=== PATIENT | female | born 1965 | race Caucasian/White ===

== ENCOUNTER 2025-03-19 11:49 | Outpatient (REF) | payer OTHER, SELFPAY ==
--- OUTSIDE RECORDS SUMMARY | 2025-03-19 11:56 | XMS_ITS | Clinical Summary ---
Author Organization [facility] Address [address] [place] [address] Phone Care Team Providers Care Temple Marker Name Role Phone Beata Mitchell MD Primary Care Provider + [phone] Allergies Active Allergy Reactions Criticality Noted Date Comments Ciprofloxacin Dizziness 10/28/2024 Medications capsaicin (ZOSTRIX) 0.075 % cream Apply topically 3 (three) times a day. 28.3 g 10/28/20 Active Active Problems No known active problems Medical History Medical History Date Comments Diabetes mellitus ([facility] V24, [facility] V28) Hypertension Social History Tobacco Use Types Packs/Day Years Used Date Smoking Tobacco: Never Smokeless Tobacco: Never Alcohol Use Standard Drinks/Week Comments Yes 0 (1 standard drink = 0.6 oz pur e alcohol) Comments Unknown Sex and Gender Information Value Date Recorded Sex Assigned at Female 10/28/2024 9:12 AM EST Legal Sex Female 1:55 PM EST Gender Identity Female 10/28/2024 9:12 AM EST Sexual Orientation Straight 10/28/2024 9: 12 AM EST Obstetrics History Last Filed Vital Signs Vital Sign Reading Time Taken Comments Blood Pressure 151/74 11/03/2024 7:02 PM EST Pulse 76 11/03/2024 7:02 PM EST Temperature 36.8 ??C (98.2 ??F) 11/03/2024 7:02 PM ES T Respiratory Rate 19 11/03/2024 7:02 PM EST Oxygen Saturation 99% 11/03/2024 7:02 PM EST Inhaled Oxygen Concentration - - Weight 134 kg (295 lb) 11/03/2024 10:40 AM EST Height 160 cm (5' 3 ) 11/03/2024 10:40 AM EST Body Mass Index 52.26 11/03/2024 10:40 AM EST Plan of Treatment Health Maintenance Due Date Last Done Comments Diabetes: Annual GFR (Glomerular Filtration Rate) 1965 Diabetes: Annual Foot Exam 1975 Diabetes: Annual Retina Eye Exam 1975 DTaP,Tdap,and Td Vaccines (1 - Tdap) 1984 Hepatitis B Vaccines (1 of 3 - 19+ 3-dose series) 1984 Pneumococcal Vaccine: 50+ Years (1 of 2 - PCV) 1984 Pneumococcal Vaccine: Pediatrics (0 to 5 Years) and At-Risk Patients (6 to 64 Years) (1 of 2 - PCV) 1984 Cervical Cancer Screening: Pap Smear 1986 Zoster Vaccines (1 of 2) 2015 Cholesterol Screening (Lipid Panel) 10/03/2022 Colorectal Cancer Screening: Colonoscopy 10/03/2022 HIV Screening 10/03/2022 Hepatitis C Screening 10/03/2022 Social Influencers of Health Screening 10/03/2022 Breast Cancer Screening 12/10/2023 12/10/2021, 05/31 Depression Screening 04/26/2024 04/26/2023 COVID-19 Vaccine ( season) 2024 06/04/2021, 05/14/2021 Diabetes: Annual Urine Albumin-Creatinine Ratio (uACR) 10/28/2024 Hypertension/CHF/CAD Annual BMP Blood Test 10/28/2024 Diabetes: Blood Sugar Control Test (HGBA1C) 03/25/2025 09/25/2024 Influenza Vaccine (Season Ended) 2025 09/14/2022, 10/29/2019, 12/31/2018, Additional history exists RSV Immunization Adult Patients (1 - 1-dose 75+ series) 2040 HIB Vaccines Aged Out No longer eligi ble based on patient's age to complete this topic HPV Vaccines Aged Out No longer eligi ble based on patient's age to complete this topic Hepatitis A Vaccines Aged Out No long er eligible based on patient's age to complete this topic IPV Vaccines Aged Out No longer eligi ble based on patient's age to complete this topic MMR Vaccines Aged Out No longer eligi ble based on patient's age to complete this topic Meningococcal ACWY Vaccine Aged Out N o longer eligible based on patient's age to complete this topic Meningococcal B Vaccine Aged Out No l onger eligible based on patient's age to complete this topic RSV Immunization Patients Under 20 months Aged Out No longer eligible based on patient's age to complete this topic Varicella Vaccines Aged Out No longer eligible based on patient's age to complete this topic Procedures Procedure Name Priority Date/Time Associated Diagnosis Comments [facility] SCREENING DIGITAL Routine 12/10/2021 10:39 AM EST Encounter for screening mammogram for malignant neoplasm of breast from Last 3 Months or Most Recently Relevant to Health Maintenance Results * [facility] SCREENING DIGITAL (12/10/2021 10:39 AM EST) Anatomical Region Laterality Modality Mammography 12/07/2021 10:2 9 AM EST Narrative 12/10/2021 10:39 AM EST [facility] Diagnostic Imaging Department [address] [place] [address] Patient: ??COLON,GAY I ?/Age/Sex: 1965 - 55 - F Unit#: ??[id number] ? Location/Status: ??SPDIMAM/REG CLI ? Mnemonic/Ordering Site: ??DIGSC/SPMAM Ordering Physician: ??BEATA MITCHELL MD Daljit Screening Digital - 12/09/21 - 1126 INDICATION: SCREENING COMPARISON: [facility] mammograms dating back to ?? 08/21/2014 TECHNIQUE: CC and MLO views of the breasts were obtained, using full field digital mammography with 3D tomosynthesis views in the MLO projection. Computer aided detection with the [employer] 7.2-H was employed. FINDINGS: The breasts are almost entirely composed of fat. No suspicious masses, suspicious microcalcifications, or areas of architectural distortion are identified. ??There are no secondary signs of breast malignancy. Benign rim calcifications again visualized within the lateral aspect of the right breast. IMPRESSION: ??No specific mammographic evidence of breast malignancy. Lack of an imaging correlate should not deter or delay biopsy of a clinically significant palpable finding. BI-RADS ??- Category 2 - Benign finding 3342F, 7025F Annual screening mammography is recommended. Patient entered into a reminder system with a target date for the next mammogram. ([id number] / [id number]) , ??[id number] Dictating Physician: ??HECTOR TOVAR MD Electronically Signed by: ??HECTOR TOVAR MD Dic Date/Time: ??12/10/21 1036 Sign date/Time: ??12/10/21 1039 Procedure Note Hector Tovar MD - 10/24/2022 [facility] Diagnostic Imaging Department [address] [place] [phone] Patient: GAY CHAMPAGNE I /Age/Sex: 1965 - 55 - F Unit#: [id number] [facility]Ordering Site: [facility] Ordering Physician: BEATA MITCHELL MD Daljit Screening Digital - 12/09/21 - 1126 INDICATION: SCREENING COMPARISON: [facility] mammograms dating back to 08/21/2014 TECHNIQUE: CC and MLO views of the breasts were obtained, using full field digital mammography with 3D tomosynthesis views in the MLO projection. Computer aided detection with the [employer] 7.2-H was employed. FINDINGS: The breasts are almost entirely composed of fat. No suspicious masses, suspicious microcalcifications, or areas ofarchitectural distortion are identified. There are no secondary signs of breastmalignancy. Benign rim calcifications again visualized within the lateral aspect ofthe right breast. IMPRESSION: No specific mammographic evidence of breast malignancy. Lack of an imaging correlate should not deter or delay biopsy of aclinically significant palpable finding. BI-RADS - Category 2 - Benign finding 3342F, 7025F Annual screening mammography is recommended. Patient entered into a reminder system with a target date for the next mammogram. [id number] / [id number]) , [id number] Dictating Physician: HECTOR TOVAR MD Electronically Signed by: HECTOR TOVAR MD Dic Date/Time: 12/10/21 1036 Sign date/Time: 12/10/21 1039 Beata Mitchell MD IMG BI PROCEDURES Final Resu lt from Last 3 Months or Most Recently Relevant to Health Maintenance Insurance [facility] [address] [place] [address] Care Teams Temple Marker Relationship Specialty Start Date End Date Beata Mitchell MD [address] [place] [address] [address] [place] [address] PCP - General Internal Medicine 10/28/24
--- OUTSIDE RECORDS SUMMARY | 2025-03-19 11:56 | XMS_ITS | Encounter Summary ---
Author Organization [employer] Address [address] [place] [address] Care Team Providers Care Engineering Professionals Name Role Phone Beata Harvey MD Primary Care Provider + Encounter Details Date Type Department Care Team (Latest Contact Info) Description 03/19/2025 Travel Social History Tobacco Use Types Packs/Day Years Used Date Smoking Tobacco: Never Smokeless Tobacco: Never Alcohol Use Standard Drinks/Week Comments Never 0 (1 standard drink = 0.6 oz pur e alcohol) Depression Answer Date Recorded Patient Health Questionnaire-9 Score 8 04/26/2023 Housing Stability Answer Date Recorded What is your housing situation today? I have paula castillo 05/06/[address] you li ve. Do you have problems with any of the following? None of the above 05/06/2024 Food Insecurity Answer Date Recorded Within the past 12 months, y ou worried that your food would run out before you got money to buy more: Often true 05/06/2024 Within the past 12 months,th e food you bought just didn't last and you didn't have enough money to get more: Often true 01/2024 Transportation Answer Date Recorded In the past 12 months, has l ack of transportation kept you from medical appts, meetings, work or from getting things needed for daily living? No 05/06/2024 Utilities Answer Date Recorded In the past 12 months, has t he electric, gas, oil or water company threatened to shut off services in your home? No 05/06/2024 Depression Answer Date Recorded Patient Health Questionnaire-2 Score 0 05/14/2024 Internet Access Answer Date Recorded Internet Access Q1 Yes 07/06/2024 Internet Access Q2 Not on file 07/06/2024 Comments Unknown Sex and Gender Information Value Date Recorded Sex Assigned at Female 09/03/2022 10:30 AM EDT Legal Sex Female 10:30 AM EDT Gender Identity Female 09/03/2022 10:30 AM EDT Sexual Orientation Choose not to disclose 2021 10:30 AM EDT documented as of this encounter Plan of Treatment Upcoming Encounters Date Type Department Care Team (Late st Contact Info) Description 03/19/2025 2:45 PM EDT Office Visit [facility] [address] [place] [phone] Umberto Avery MD [address] [place] [phone] Telogen effluvium (Primary Dx); Seborrheic keratosis 04/16/2025 9:45 AM EDT Office Visit [facility] [address] [place] [address] [phone] Beata Harvey MD [address] [place] [phone] documented as of this encounter Visit Diagnoses Not on filedocumented in this encounter Additional Health Concerns Assessment Noted Time PHQ-9 Depression Total Score: 8 04/26/20 23 10:46 AM EDT documented as of this encounter Care Teams Engineering Professionals Relationship Specialty Start Date End Date Beata Harvey MD [address] [place] [phone] PCP - General Family Medicine 10/30/16 documented as of this encounter
--- OUTSIDE RECORDS SUMMARY | 2025-03-19 11:56 | XMS_ITS | Encounter Summary ---
Author Organization [employer] Address [address] [facility] 7[address] [place] [address] Care Team Providers Care Drawbench Operator Helper Name Role Phone Beata Harvey MD Primary Care Provider + Encounter Details Date Type Department Care Team (Late st Contact Info) Description 03/19/2025 2:45 PM EDT Office Visit [facility] [address], [place] [phone] Umberto Avery MD [address] [place] [address] Telogen effluvium (Primary Dx); Seborrheic keratosis Social History Tobacco Use Types Packs/Day Years [...] AM EDT documented as of this encounter Last Filed Vital Signs Vital Sign Reading Time Taken Comments Blood Pressure 177/82 03/19/2025 11:19 AM EDT Pulse 77 03/19/2025 11:19 AM EDT Temperature 36.2 ??C (97.1 ??F) 03/19/2025 11:19 AM E DT Respiratory Rate 16 03/19/2025 11:19 AM EDT Oxygen Saturation - - Inhaled Oxygen Concentration - - Weight 125 kg (274 lb 8 oz) 03/19/2025 11:19 AM EDT Height 160 cm (5' 3 ) 03/19/2025 11:19 AM EDT Body Mass Index 48.63 03/19/2025 11:19 AM EDT documented in this encounter Progress Notes * Umberto Avery MD - 03/19/2025 2:45 PM EDT Subjective Patient ID: Gay Reed is a 59 y.o. female who presents for No chief complaint on file.. HPI 59 yr old woman with hx of hair loss, she has been noticing a lot of hair loss in the morning. She also has a skin growth on her L cheek for 2 months, asymptomatic . Review of Systems Constitutional: Negative for diaphoresis, fatigue and fever. HENT: Negative for ear discharge, ear pain, facial swelling and hearing loss. Respiratory: Negative for cough, choking, chest tightness and shortness of breath. Cardiovascular: Negative for chest pain and leg swelling. Gastrointestinal: Negative for abdominal distention, abdominal pain and anal bleeding. Endocrine: Negative for cold intolerance and heat intolerance. Genitourinary: Negative for enuresis, flank pain and frequency. Musculoskeletal: Negative for arthralgias, back pain and gait problem. Neurological: Negative for dizziness, facial asymmetry and headaches. Psychiatric/Behavioral: Negative for agitation, behavioral problems and confusion. Objective Physical Exam Constitutional: Appearance: Normal appearance. HENT: Head: Normocephalic and atraumatic. Nose: Nose normal. Eyes: Pupils: Pupils are equal, round, and reactive to light. Pulmonary: Effort: Pulmonary effort is normal. Musculoskeletal: General: Normal range of motion. Cervical back: Normal range of motion. Skin: Comments: Decrease hair density on scalp all over, no inflammation , scarring or scales 5 mm stuck on appearing papule with verruca like shape on L cheek Neurological: General: No focal deficit present. Mental Status: She is alert. Assessment/Plan Diagnoses and all orders for this visit: Telogen effluvium Reviewed condition with patient Advised to complete BW Likely secondary to her underlying conditions (hx of Celiac, DM) Tx with Minoxidil topical for 3-6 months BID - Ferritin - Iron And Total Iron Binding Capacity - TSH W/Reflex to FT4 - Vitamin D, 25-Hydroxy, Total, Immunoassay Seborrheic keratosis Cryotherapy for Destruction of Benign Symptomatic lesion: Indication: SK Lesion Location: L cheek Procedure: The risks, benefits and alternatives were discussed with the patient. Risks include, butare not limited to blistering, pain, dyspigmentation and inefficacy. The patient and/or guardian provided verbal consent for treatment with liquid nitrogen. Two freeze thaw cycles were performed. The patient tolerated the procedure well. There were no complications. Aftercare discussed with thepatient. documented in this encounter Plan of Treatment Upcoming Encounters Date Type Department Care Team (Late st Contact Info) Description 04/16/2025 9:45 AM EDT Office Visit [facility] [address] [place] [address] Beata Harvey MD [address] [place] [address] Scheduled Orders Name Type Priority Associated Diagnoses Orde r Schedule Ferritin Lab Routine Telogen effluvium Ordered: 03/19/2025 Iron And Total Iron Binding Capacity Lab Routine Telogen effluvium Ordered: 03/19/2025 TSH W/Reflex to FT4 Lab Routine Telogen effluvium Ordered: 03/19/2025 Vitamin D, 25-Hydroxy, Total , Immunoassay Lab Routine Telogen effluvium Ordered: 03/19/2025 documented as of this encounter Visit Diagnoses Diagnosis Telogen effluvium- Primary Seborrheic keratosis documented in this encounter Additional Health Concerns Assessment Noted Time PHQ-9 Depression Total Score: 8 04/26/20 23 10:46 AM EDT documented as of this encounter Care Teams Drawbench Operator Helper Relationship Specialty Start Date End Date Beata Harvey MD [address] [place] [phone] PCP - General Family Medicine 10/30/16 documented as of this encounter
--- OUTSIDE RECORDS SUMMARY | 2025-03-19 11:56 | XMS_ITS | Encounter Summary ---
Author Organization [employer] Address [address] [facility] [address]t [place] [address] Care Team Providers Care Sieve Maker Name Role Phone Beata Harvey MD Primary Care Provider + Reason for Visit * Reason Comments Med Refill Encounter Details Date Type Department Care Team ([facility] st Contact Info) Description 01/22/2025 Refill [facility] [address] [place], [place] [phone] Beata Harvey MD [address] [place], [place] [phone] Social History Tobacco Use Types Packs/Day Years [...] Description 03/19/2025 2:45 PM EDT Office Visit [facility] [address] [place] [phone] Umberto Avery MD [address] [place] [phone] Telogen effluvium (Primary Dx); Seborrheic keratosis 04/16/2025 9:45 AM EDT Office Visit [facility] [address] [place] [phone] Beata Harvey MD [address] [place] [phone] documented as of this encounter Visit Diagnoses Not on filedocumented in this encounter Additional Health Concerns Assessment Noted Time PHQ-9 Depression Total Score: 8 04/26/20 23 10:46 AM EDT documented as of this encounter Care Teams Sieve Maker Relationship Specialty Start Date End Date Beata Harvey MD [address] [place] [phone] PCP - General Family Medicine 10/30/16 documented as of this encounter
--- OUTSIDE RECORDS SUMMARY | 2025-03-19 11:56 | XMS_ITS | Clinical Summary ---
Author Organization [employer] Address [address] [facility] 7t [place] [address] Care Team Providers Care Mixer Operator Tablets Name Role Phone Beata Harvey MD Primary Care Provider + Allergies No known active allergies Medications * This document contains information received from the source organization and may not represent a complete record from that organization. pioglitazone (Actos) 30 MG tablet TAKE ONE TABLET BY MOUTH ONCE DAILY 90 tablet 4 Active metFORMIN (Glucophage) 500 MG tabletIndicatio ns:Type 2 diabetes mellitus with hyperglycemia, without long-term current use of insulin ([facility]) TAKE ONE TABLET BY MOUTH AT LUNCH TIME (TOTAL 2500 MG PER DAY) 90 tablet 4 Active albuterol 108 (90 Base) MCG/ACT inhaler Inhale 2 puffs every 6 (six) hours if needed for wheezing. 18 g 4 05/14/20 25 Active hydrocortisone 2.5 % cream Apply topically 2 times daily. 28 g 3 4 Active lisinopril 10 MG tablet Take 1 tablet (10 mg) by mouth Once per day. 90 tablet 3 4 07/24/20 25 Active metFORMIN (Glucophage) 1000 MG tablet TAKE 1 TABLET BY MOUTH TWICE A DAY 180 tablet 1 4 Active glyBURIDE (Diabeta) 5 MG tablet Take 1 tablet (5 mg) by mouth with breakfast. 90 tablet 3 5 11/26/19 26 Active meloxicam (Mobic) 15 MG tablet Take 1 tablet (15 mg) by mouth Once per day. 30 tablet 5 01/16/20 26 Active cyclobenzaprine (Flexeril) 10 MG tablet Take 1 tablet (10 mg) by mouth at bedtime for 10 days. 10 tablet 5 Active Tirzepatide (Mounjaro) 5 MG/0.5ML solution auto-injector Inject 5 mg under the skin 1 (one) time per week. 2 mL 2 5 Active insulin lispro (HumaLOG KWIKPEN) 100 UNIT/ML injectionIndica tions:Type 2 diabetes mellitus with hyperglycemia, without long-term current use of insulin ([facility]) Inject 2-10u subcutaneous TID ac meals according to sliding scale, 200-250= 2u/ 251-300=4/301-35 0=6u/351-400=8u/ 401-500= 10 U and call PCP 1 each 1 5 Active Active Problems Problem Noted Date Diagnosed Date Trochanteric bursitis of both hips 11/13/2024 Assessment & Plan (01/15/2025 2:06 PM EDT): Partial improvement S/P PT. Will refer to Orthopedics for cortisol injection to continue PT. Spoke with physical therapist Anna at [facility] and they recommended and share with strong lumbar support. I will also order standing desk. Assessment & Plan (11/13/2024 2:05 PM EST): She has difficulty ambulating. Patient most likely had pelvic muscle strain, hip bursitis, secondary to recent fall. Advised to apply heat to the area plus Tylenol PRN, change positions regularly and avoid sitting or lying in bed for more than 3hrs except over night. 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 Refer to physical therapy. FU in 1 month. Fall from slipping on wet surface 11/13/2024 Hair loss 09/25/2024 Assessment & Plan (09/25/2024 1:08 PM EST): Refer to Dermatology, it may be related to menopausal changes. Class 3 severe obesity due t o excess calories with serious comorbidity and body mass index (BMI) of 50.0 to 59.9 in adult 09/25/2024 Plantar fasciitis of left foot 05/14/2024 Assessment & Plan (07/29/2024 3:50 PM EDT): Will follow up with DME with provider for diabetic shoes and inserts. Refer to ortho for evaluation of other rx, patient failed 3 steroid inj. Assessment & Plan (05/14/2024 1:45 PM EDT): Failed steroid injection x 3 by virtual assistant. Recommended to use plantar fascitis splint every night. Use gel heel protectors for ambulation and prescribed diabetic shoes with inserts. Follow up in 6-8 weeks, with referral to Orthopaedics if needed. Mosquito bite 05/14/2024 Assessment & Plan (05/14/2024 1:48 PM EDT): Both thighs, seem to hav atopic reaction. Use hydrocortisone cream BID, avoid scratching. Hand pain 05/12/2024 Fibromyositis 05/12/2024 Cough 05/12/2024 Chest pain 05/12/2024 Benign neoplasm of soft tissue 05/12/2024 Arthralgia of multiple joints 05/12/2024 Acute low back pain 05/12/2024 Stress 05/12/2024 COVID-19 07/24/2023 Overview (08/15/2023): [facility] ED visit on 07/27/23, normal CXR Type 2 diabetes mellitus 04/26/2023 Assessment & Plan (11/26/2024 9:37 AM EST): Most likely still uncontrolled, BS variations likely related to Glyburide. Decrease Glyburide to 5 mg per day and increase Ozempic to 2 mg per week, and FU in 6 weeks. Continue Actos and Metformin same dose. Assessment & Plan (09/25/2024 1:07 PM EST): Most likely uncontrolled. Will discuss with pt different treatment options, it does seems he is tolerating Ozempic well but needs to improve dietary choices including lowering carbs, rice, and pasta. Increase Ozempic to 1 mg per week and follow up in 4-6 weeks, she will call prn if she develops vomiting, severe constipation, or abdominal bloating. Continue on Actos, Lower Glyburide to 5 mg a day, continue Metformin TID. Counseled re more frequent low calorie/carb meals. Check fgstk twice daily Encouraged physical activity as tolerated. Assessment & Plan (07/24/2024 12:18 PM EDT): Very controlled on Ozempic, however having hypoglycemic episodes. Will taper down Glyburide to 5 mg per day and follow up in 6-8 weeks. She is advised to start using Ozempic 0.5 mg once hypoglycemic episodes are resolved, will continue 0.25 mg for now. Continue Metformin. Assessment & Plan (05/14/2024 1:41 PM EDT): Uncontrolled. Start Ozempic 2.5 MG Continue Glyburide, Metformin, and Actos. Increase physical activity as tolerated. FU in 6-8 weeks. Assessment & Plan (04/26/2023 1:49 PM EDT): Slightly uncontrolled. Counceled to restart 500mg metformin at noon time and continue the 1000mg BID Counseled re more frequent low calorie/carb meals. Encouraged physical activity as tolerated. Continue actose and gliberide. 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 She now has issues with anxiety may be related to menopause changes and increased conflicts with partner Refer to and FU in 4 weeks Pt feels safe at home and is able to contract for safety will address medications at next appointment Moderate persistent asthma without complication 04/26/2023 Assessment & Plan (05/14/2024 1:46 PM EDT): Never went to Pulmonology appointment, I will order PFTs. Use Albuterol PRN only, she is off inhaler steroids (not covered). Advised weight reduction. Follow up in 6-8 weeks. Assessment & Plan (04/26/2023 1:47 PM EDT): Worsening for the past year after covid. Increase flovent to 220 BID refer to pulmnologist. Tubular adenoma of colon 11/04/2019 Abdominal pain 03/16/2019 Essential hypertension 12/31/2018 Assessment & Plan (09/25/2024 1:05 PM EST): Better controlled Continue Lisinopril 10 mg. Counseled re low salt diet/increase moderate physical activity. Check home BP BIW and prn CP/GOETZ/CHAMBERS Non smoking patient. Follow up in 3 months. Assessment & Plan (07/24/2024 12:17 PM EDT): Uncontrolled. Increase Lisinopril to 10 mg and follow up in 6-8 weeks. Assessment & Plan (05/14/2024 1:42 PM EDT): Uncontrolled, will attempt for a better control of DM and HTN. Continue of Lisinopril 5 MG, will adjust at next appointment if needed. Assessment & Plan (04/26/2023 1:49 PM EDT): Stage 1. Pt will bring medications at next appointment, order labs and fu in 4 weeks Counseled re low salt diet/increase moderate physical activity. Check home BP BIW and prn CP/GOETZ/CHAMBERS Non smoking patient. No change in medications today Mild depression 12/31/2018 Tendinitis of left rotator cuff 12/31/2018 Assessment & Plan (01/15/2025 1:37 PM EDT): Exacerbated by fall, will refer to Orthopedics, see above. Take Meloxicam daily and Tylenol PRN. Meloxicam at bedtime, cautioned about driving and/or performing activities that require vigilance. FU with me in 3 months. Severe obesity 12/31/2018 Assessment & Plan (09/25/2024 1:07 PM EST): Discussed re weight reduction options including exercise, life style modifications, diet and referral to guest specialist. Recommended to decrease soda and sugary beverage consumption, increase protein intake with meals (at least 1 portion of protein with each meal) to assist with satiety, increase dietary fiber Recommended at least 150 min/week of moderate intensity exercise. Hypertriglyceridemia 08/22/2017 Allergic asthma 11/20/2016 Periumbilical pain 11/20/2016 Arthritis 11/20/2016 Encounters Date Type Department Care Team Description 03/19/2025 2:45 PM EDT Office Visit [facility] [address] [place] [address] Umberto Avery MD Telogen effluvium (Primary Dx); Seborrheic keratosis 03/19/2025 Travel 03/09/[address] [address] Beata Harvey MD Appointment Request 01/22/2025 Refill [facility] [address] [place] [address] Beata Harvey MD 01/20/2025 Telephone [facility] [address] [place] [address] Beata Harvey MD Medication Question 01/15/2025 11:45 AM EDT Office Visit [facility] [address] [place] [address] Beata Harvey MD Trochanteric bursitis of both hips (Primary Dx); Tendinitis of left rotator cuff 01/15/2025 Telephone [facility] [address] [place] [address] Anabel Cotter MA Durable Medical Equipment 01/15/2025 Telephone [facility] [address] [place] [address] Beata Harvey MD Prior Authorization ([facility] [employer] [place] Request: Mounjaro 5MG/ 0.5 ML) 01/15/2025 Travel 01/08/2025 Travel 12/29/2024 Telephone [facility] [address] [place] [address] Beata Harvey MD Durable Medical Equipment from Last 3 Months Immunizations Immunization Administration Dates Next Due Influenza injectable quadriv alent IIV4 with preservative 08/22/2017 Influenza injectable quadriv alent preservative free 09/14/2022,10/29/2019,12/31/2018 Social History Tobacco Use Types Packs/Day Years Used Date Smoking Tobacco: Never Smokeless Tobacco: Never Tobacco Cessation:Counseling Given: Not Answered Alcohol Use Standard Drinks/Week Comments Never 0 [...] not to disclose 2021 10:30 AM EDT Last Filed Vital Signs Vital Sign Reading Time Taken Comments Blood Pressure 177/82 03/19/2025 11:19 AM EDT Pulse 77 03/19/2025 11:19 AM EDT Temperature 36.2 ??C (97.1 ??F) 03/19/2025 11:19 AM E DT Respiratory Rate 16 03/19/2025 11:19 AM EDT Oxygen Saturation 99% 01/15/2025 11:43 AM EDT Inhaled Oxygen Concentration - - Weight 125 kg (274 lb 8 oz) 03/19/2025 11:19 AM EDT Height 160 cm (5' 3 ) 03/19/2025 11:19 AM EDT Body Mass Index 48.63 03/19/2025 11:19 AM EDT Plan of Treatment Upcoming Encounters Date Type Department Care Team (Late st Contact Info) Description 03/19/2025 2:45 PM EDT Office Visit [facility] [address] [place] [phone] Umberto Avery MD [address] [place] [phone] Telogen effluvium (Primary Dx); Seborrheic keratosis 04/16/2025 9:45 AM EDT Office Visit [facility] [address] [place] [phone] Beata Harvey MD [address] [place] [address] [phone] Health Maintenance Due Date Last Done Comments CT Colonography 1965 Colonoscopy 1965 Colorectal Cancer Screening 1965 FIT DNA/Cologuard 1965 FIT 1965 FOBT 1965 HIV Screening 1965 Lipid Panel 1965 Sigmoidoscopy 1965 Diabetes: Foot Exam 1975 Alcohol/Substance Use Screening 1977 Hepatitis C Screening 1983 DTaP/Tdap/Td Vaccines (1 - Tdap) 1984 Hepatitis B Vaccines (1 of 3 - 19+ 3-dose series) 1984 Pneumococcal Vaccine: 50+ Years (1 of 2 - PCV) 1984 Zoster Vaccines (1 of 2) 2015 Diabetes: Urine Protein Screening 10/29/2020 10/29/2019 Mammogram 12/09/2023 12/09/2021 COVID-19 Vaccine ( season) 2024 06/04/2021, 05/14/2021 Influenza Vaccine (#1) 2024 , 10/29/2019, 12/31/2018, Additional history exists Cervical Cancer Screening 10/20/2024 HPV/Cotest 10/20/2024 10/20/2019 Pap Smear 10/20/2024 10/20/2019 Diabetes: Hemoglobin A1C 12/26/2024 024, 05/14/2024, 04/26/2023 SDOH Screening 05/06/2025 05/06/2024 Depression Screening 05/14/2025 05/14/2024, 04/26/20 23 Eye Exam 10/16/2025 10/16/2023 Tobacco Screening 01/15/2026 01/15/2025 RSV Patients and Patients Aged 60 years or older (1 - 1-dose 75+ series) 2040 HIB [...] patient's age to complete this topic Meningococcal Vaccine Aged Out No barry dary eligible based on patient's age to complete this topic RSV under 20 months Aged Out No longe r eligible based on patient's age to complete this topic Rotavirus Vaccines Aged Out No longer eligible based on patient's age to complete this topic Procedures Procedure Name Priority Date/Time Associated Diagnosis Comments POCT GLYCATED HEMOGLOBIN, TOTAL Routine 09/25/2024 11:30 AM EST Type 2 diabetes mellitus with hyperglycemia, without long-term current use of insulin ([facility]) MAMMOGRAPHY Routine 12/09/2021 ZZZ HISTORICAL MICROALBUMIN, RANDOM Routine 10/29/2019 12:00 AM EST PAP/HPV Routine 10/20/2019 from Last 3 Months or Most Recently Relevant to Health Maintenance Results * (ABNORMAL) POCT HGB A1C (09/25/2024 11:30 AM EST) Pathologist [facility] Hemoglobin A1C 8.6(A) 4.0 - 6.0 % QC Media Lot # [id number] Lot# Expiration Date [id number] Blood 09/25/2024 11:3 0 AM EST Beata Harvey MD POINT OF CARE TEST ENTER /EDIT ORDERABLES Final Result * Mammography (12/09/2021) Pathologist [facility] Mammogram Bi-rads2 Anatomical Region Laterality Modality Other Historical Provider MD HEALTH MAINTENANCE Final Result * MICROALBUMIN, RANDOM (10/29/2019 12:00 AM EST) Pathologist [facility] CREATININE, RANDOM URINE 69.57 MG/DL [facility] MICALB/CRE RATIO RANDOM URINE 27.3 ug/mg cr [facility] Comment: ?Albumin/Creatinine Ratio Reference Ranges: ? Normal: < 30 ug/mg creatinine ? Microalbuminuria: ??30 - 300 ug/mg creatinine Clinical Albuminuria: ??> 300 ug/mg creatinine MICROALBUMIN, RANDOM URINE 19.0 MG/L [facility] 10/29/2019 Beata Harvey MD HISTORICAL/NON ORDERABLE LABS Final Result [facility] [address] * Pap Smear (10/20/2019) Pathologist [facility] Pap Negative for intraephithelial lesion or malignancy Negative for intraephithelial lesion or malignancy, Other HPV Undetected Undetected, Indeterminate, Quantitative, Not Detected Historical Provider HEALTH MAINTENANCE Final Result from Last 3 Months or Most Recently Relevant to Health Maintenance Insurance [facility] , [address] [place] [address] Care Teams Mixer Operator Tablets Relationship Specialty Start Date End Date Beata Harvey MD [address] [place] [phone] PCP - General Family Medicine 10/30/16
--- OUTSIDE RECORDS SUMMARY | 2025-03-19 11:57 | XMS_ITS | Encounter Summary ---
Author Organization [employer] Address [address] [facility] [address] [place] [address] Care Team Providers Care Janitorial Assistant Name Role Phone Beata Harvey MD Primary Care Provider + Encounter Details Date Type Department Care Team (Late st Contact Info) Description 11/06/2022 Orders Only [facility] [address] [place], [place] [phone] Danisha Lawrence LPN Social History Tobacco Use Types Packs/Day Years Used Date Smoking Tobacco: Never Assessed Comments Unknown Sex and Gender Information Value [...] Description 03/19/2025 2:45 PM EDT Office Visit [facility] [address] [place] [phone] Umberto Avery MD [address] [place] [address] [phone] Telogen effluvium (Primary Dx); Seborrheic keratosis 04/16/2025 9:45 AM EDT Office Visit [facility] [address] [place] [phone] Beata Harvey MD [address] [place] [address] [phone] documented as of this encounter Visit Diagnoses Not on filedocumented in this encounter Care Teams Janitorial Assistant Relationship Specialty Start Date End Date Beata Harvey MD [address] [place] [phone] PCP - General Family Medicine 10/30/16 documented as of this encounter
--- OUTSIDE RECORDS SUMMARY | 2025-03-19 11:57 | XMS_ITS | Encounter Summary ---
Author Organization [employer] Address [address] [facility] [address]t [place] [address] Care Team Providers Care Furniture Fabricator Name Role Phone Beata Harvey MD Primary Care Provider + Encounter Details Date Type Department Care Team (Late st Contact Info) Description 09/13/2023 Orders Only [facility] [address] [place], [place] [phone] Carline Reyes LPN Social History Tobacco Use Types Packs/Day Years Used Date Smoking Tobacco: Never Smokeless Tobacco: Never Alcohol Use Standard Drinks/Week Comments Never 0 (1 standard drink = 0.6 oz pur e alcohol) Depression Answer Date Recorded Patient Health Questionnaire-9 Score 8 04/26/2023 Housing Stability Answer Date Recorded What is your housing situation today? I have paula castillo 09/09/[address] you li ve. Do you have problems with any of the following? None of the above 09/09/2023 Food Insecurity Answer Date Recorded Within the past 12 months, y ou worried that your food would run out before you got money to buy more: Never True 09/09/2023 Within the past 12 months,th e food you bought just didn't last and you didn't have enough money to get more: Never True 04/2023 Transportation Answer Date Recorded In the past 12 months, has l ack of transportation kept you from medical appts, meetings, work or from getting things needed for daily living? Yes, it has kept me from medical appointments or getting medications. 08/11/2023 Utilities Answer Date Recorded In the past 12 months, has t he electric, gas, oil or water company threatened to shut off services in your home? No 09/09/2023 Depression Answer Date Recorded Patient Health Questionnaire-2 Score 2 04/26/2023 Comments Unknown Sex and Gender Information Value [...] Description 03/19/2025 2:45 PM EDT Office Visit [facility] [address] [place] [phone] Umberto Avery MD [address] [place] [phone] Telogen effluvium (Primary Dx); Seborrheic keratosis 04/16/2025 9:45 AM EDT Office Visit [facility] [address] [place] [address] Beata Harvey MD [address] [place] [phone] documented as of this encounter Visit Diagnoses Not on filedocumented in this encounter Additional Health Concerns Assessment Noted Time PHQ-9 Depression Total Score: 8 04/26/20 23 10:46 AM EDT documented as of this encounter Care Teams Furniture Fabricator Relationship Specialty Start Date End Date Beata Harvey MD [address] [place] [phone] PCP - General Family Medicine 10/30/16 documented as of this encounter
--- OUTSIDE RECORDS SUMMARY | 2025-03-19 11:57 | XMS_ITS | Encounter Summary ---
Author Organization [employer] Address [address] [facility] 7t [place] [address] Care Team Providers Care Document Analyst Name Role Phone Beata Harvey MD Primary Care Provider + Encounter Details Date Type Department Care Team (Late st Contact Info) Description 05/14/2024 Abstract [facility] [address] [place], [place] [phone] Beata Harvey MD [address] [place], [place] [phone] Social History Tobacco Use Types Packs/Day Years [...] Recorded Patient Health Questionnaire-2 Score 0 05/14/2024 Comments Unknown Sex and Gender Information Value Date Recorded Sex Assigned at Female 09/03/2022 10:30 AM EDT Legal Sex Female 10:30 AM EDT Gender Identity Female 09/03/2022 10:30 AM EDT Sexual Orientation Choose not to disclose 2021 10:30 AM EDT documented as of this encounter Functional Status * Over the past 2 weeks, how often have you been bothered by any of the following problems? Question Answer Date of Assessment Author Little interest or pleasure in doing things Not at all 05/14/2024 11:51 AM EDT Kathleen Cotter MA Feeling down, depressed, or hopeless Not at all 05/14/2024 11:51 AM EDT Kathleen Cotter MA Patient Health Questionnaire-2 Score 0 05/14/2024 11:51 AM EDT Parvez Cotter MA documented as of this encounter Plan of Treatment Upcoming Encounters Date Type Department Care Team (Late st Contact Info) Description 03/19/2025 2:45 PM EDT Office Visit [facility] [address] [place] [phone] Umberto Avery MD [address] [place] [phone] Telogen effluvium (Primary Dx); Seborrheic keratosis 04/16/2025 9:45 AM EDT Office Visit [facility] [address] [place] [address] Beata Harvey MD [address] [place] [phone] documented as of this encounter Visit Diagnoses Not on filedocumented in this encounter Additional Health Concerns Assessment Noted Time PHQ-9 Depression Total Score: 8 04/26/20 23 10:46 AM EDT documented as of this encounter Care Teams Document Analyst Relationship Specialty Start Date End Date Beata Harvey MD [address] [place] [address] PCP - General Family Medicine 10/30/16 documented as of this encounter
--- OUTSIDE RECORDS SUMMARY | 2025-03-19 11:57 | XMS_ITS | Encounter Summary ---
Author Organization [employer] Address [address] [facility] 7t [place] [address] Care Team Providers Care Rn Mental Health Name Role Phone Beata Harvey MD Primary Care Provider + Reason for Visit * Reason Comments Med Refill Encounter Details Date Type Department Care Team ([facility] st Contact Info) Description 11/27/2024 Refill [facility] [address] [place], [place] [phone] Beata Harvey MD [address] [place], [place] [phone] Social History Tobacco Use Types Packs/Day Years [...] Description 03/19/2025 2:45 PM EDT Office Visit [facility] [address] [place] [phone] Umberto Avery MD [address] [place] [phone] Telogen effluvium (Primary Dx); Seborrheic keratosis 04/16/2025 9:45 AM EDT Office Visit [facility] [address] [place] [phone] Beata Harvey MD [address] [place] [phone] documented as of this encounter Visit Diagnoses Not on filedocumented in this encounter Additional Health Concerns Assessment Noted Time PHQ-9 Depression Total Score: 8 04/26/20 23 10:46 AM EDT documented as of this encounter Care Teams Rn Mental Health Relationship Specialty Start Date End Date Beata Harvey MD [address] [place] [phone] PCP - General Family Medicine 10/30/16 documented as of this encounter
--- OUTSIDE RECORDS SUMMARY | 2025-03-19 11:57 | XMS_ITS | Encounter Summary ---
Author Organization [employer] Address [address] [place] [address] Care Team Providers Care Family Development Extension Specialist Name Role Phone Beata Harvey MD Primary Care Provider + Reason for Visit * Reason Onset Date Comments Referral 11/25/2024 Encounter Details Date Type Department Care Team ([facility] st Contact Info) Description 11/25/2024 Telephone [facility] [address] [place], [place] [phone] Beata Harvey MD [address] [place] [address] Referral Social History Tobacco Use Types Packs/Day Years [...] AM EDT documented as of this encounter Miscellaneous Notes * Telephone Encounter - Velasquez Chilo - 11/25/2024 11:41 AM EST Tc from anna from [facility] requesting for referral to be sent to .Anna states that pt wants to be seened here. [facility] [address], [place] [address] documented in this encounter Plan of Treatment Upcoming Encounters Date Type Department Care Team (Late st Contact Info) Description 03/19/2025 2:45 PM EDT Office Visit [facility] [address] [place] [phone] Umberto Avery MD [address] [place] [phone] Telogen effluvium (Primary Dx); Seborrheic keratosis 04/16/2025 9:45 AM EDT Office Visit [facility] [address] [place] [address] [phone] Beata Harvey MD [address] [place] [phone] documented as of this encounter Visit Diagnoses Not on filedocumented in this encounter Additional Health Concerns Assessment Noted Time PHQ-9 Depression Total Score: 8 06/23/20 23 10:46 AM EDT documented as of this encounter Care Teams Family Development Extension Specialist Relationship Specialty Start Date End Date Beata Harvey MD [address] [place] [phone] PCP - General Family Medicine 10/30/16 documented as of this encounter
--- OUTSIDE RECORDS SUMMARY | 2025-03-19 11:57 | XMS_ITS | Encounter Summary ---
Author Organization [email or web address] Address [address] [facility] [address] [place] [address] Care Team Providers Care Rim Roller Operator Name Role Phone Beata Harvey MD Primary Care Provider + Encounter Details Date Type Department Care Team (Late Contact Info) Description 07/02/2023 Orders Only [facility] [address] [place], [place] [phone] Danisha Lawrence LPN Social History Tobacco Use Types Packs/Day Years Used Date Smoking Tobacco: Never Smokeless Tobacco: Never Alcohol Use Standard Drinks/Week Comments Never 0 (1 standard drink = 0.6 oz pur e alcohol) Depression Answer Date Recorded Patient Health Questionnaire-9 Score 8 04/26/2023 Depression Answer Date Recorded Patient Health Questionnaire-2 [...] Description 03/19/2025 2:45 PM EDT Office Visit [facility] [address] [place], [place] [phone] Umberto Avery MD [address] [place], [place] [phone] Telogen effluvium (Primary Dx); Seborrheic keratosis 04/16/2025 9:45 AM EDT Office Visit [facility] [address] [place] [address] Beata Harvey MD [address] [place] [address] documented as of this encounter Visit Diagnoses Not on filedocumented in this encounter Additional Health Concerns Assessment Noted Time PHQ-9 Depression Total Score: 8 04/26/20 10:46 AM EDT documented as of this encounter Care Teams Rim Roller Operator Relationship Specialty Start Date End Date Beata Harvey MD [address] [place] [phone] PCP - General Family Medicine 10/30/16 documented as of this encounter
[2025-03-19 13:54] LABS: Iron 73 mcg/dL (30-160); Percent Iron Saturation 26 % (15-50); Total Iron Binding Capacity 279 mcg/dL (228-428); Unsaturated Iron Binding 206 ug/dL
[2025-03-19 14:10] LABS: Ferritin 129 ng/mL (10-250); TSH reflex Free T4 1.23 uIU/mL (0.32-4.0); Vitamin D 25-OH Total 35.4 ng/mL (>30)
== END 2025-03-19 11:50 | disposition home or self-care (01) ==
LOC: HO.HHCL 11:49
PROVIDERS: Visit Provider Internal Medicine
DX: L65.0 Telogen effluvium (principal)
CPT/HCPCS: 36415; 82306; 82728; 83540; 84443

== ENCOUNTER 2025-04-16 10:54 | Outpatient (REF) | payer OTHER, SELFPAY ==
--- NOTE | ~2025-04-16 | XR_ITS ---
EXAMINATION: XR ANKLE, LEFT CLINICAL INFORMATION: left ankle edema COMPARISON: None available. TECHNIQUE: AP, lateral, and mortise views of the left ankle. FINDINGS: Ankle mortise is congruent. Faint linear calcific density projects within the medial clear space of the ankle mortise. There is faint osteopenia in the medial talar dome. Syndesmosis appears intact without widening. Small marginal osteophytes are visible in the dorsal midfoot. There is an enthesophyte involving the medial malleolus. There are enthesophytes the Achilles and plantar fascial attachment to calcaneus. Faint vascular calcifications are present in the posterior ankle. XR/XR ankle LT min 3V IMPRESSION: Faint osteopenia in the medial talar dome could indicate an overlying chondral defect. Linear calcification in the medial clear space likely represents chondrocalcinosis. There is a plantar calcaneal spur, a nonspecific finding. 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 Electronically signed by: Randy Hopkins MD 04/16/2025 11:55 AM EDT
--- OUTSIDE RECORDS SUMMARY | 2025-04-16 11:58 | XMS_ITS | Encounter Summary ---
Author Organization [employer] Address [address] [facility] [address] [place] [address] Care Team Providers Care Wheel Installer Name Role Phone Beata Harvey MD Primary Care Provider + Encounter Details Date Type Department Care Team (Late st Contact Info) Description 03/19/2025 Results Follow-Up [facility] [address] [place], [place] [phone] Umberto Avery MD [address] [place], [place] [phone] Ferritin, Iron And Total Iron Binding Capacity, TSH W/Reflex to FT4, Vitamin D, 25-Hydroxy, Total, Immunoassay Social History Tobacco Use Types Packs/Day Years [...] Care Team (Late st Contact Info) Description 06/25/2025 11:15 AM EDT Office Visit [facility] [address] [place] [address] Beata Harvey MD [address] [place] [address] documented as of this encounter Visit Diagnoses Not on filedocumented in this encounter Additional Health Concerns Assessment Noted Time PHQ-9 Depression Total Score: 8 04/26/20 23 10:46 AM EDT documented as of this encounter Care Teams Wheel Installer Relationship Specialty Start Date End Date Beata Harvey MD [address] [place] [phone] PCP - General Family Medicine 10/30/16 documented as of this encounter
== END 2025-04-16 10:55 | disposition home or self-care (01) ==
LOC: HO.HHCX 10:54
PROVIDERS: Visit Provider Internal Medicine
DX: M25.472 Effusion, left ankle (principal)
CPT/HCPCS: 73610

== ENCOUNTER → 2025-04-16 10:54 | Outpatient (BNV) | payer OTHER, SELFPAY | PROVIDERS: Visit Provider Radiology Diagnostic Radiology | DX: M85.872 Other specified disorders of bone density and structure, left ankle and foot (principal) | CPT/HCPCS: 73610 ==